=== PATIENT | female | born 1980 | race Caucasian/White ===

== ENCOUNTER 2016-12-11 09:30 | Emergency (ER) | payer OTHER ==
[2016-12-11 09:36] VITALS: BP 131/75
--- NOTE | 2016-12-11 10:24 | RAD ---
INDICATION: Painful swollen RIGHT thumb at the IP joint. No preceding injury. COMPARISON: No relevant prior exams available on the [facility] [place] PACS for comparison. TECHNIQUE: AP, lateral, and oblique views RIGHT hand. REPORT: Negative for fracture or malalignment. Minimal osteophytosis at the first carpometacarpal, metacarpophalangeal, and interphalangeal joints. Negative for osseous erosions or periarticular osteopenia. Mild soft tissue swelling of the thumb. No conspicuous foreign body evident. IMPRESSION: Minimal osteoarthritis.
--- NOTE | 2016-12-11 11:05 | UC ---
Zain Choi Rebecca, scribed for Tru Harman MD on 12/11/16 at 0942 . Upper Extremity HPI - HPI Summary HPI Summary: Pt is a 36 y/o F who presents to [facility] c/o R thumb pain and swelling. Sx began yesterday and have been constant since onset. Pain has improved since onset, previously severe and currently moderate, ranked 5/10 and characterized as an ache, mostly centralized to the joint. Sx aggravated by bending, alleviated by immobilization. Additionally c/o slight numbness in the thumb. Denies fever, chills, red-streaking and erythema. No pain in any other joints. No recent trauma, falls or over use. Dominant right hand. Reports she suspects bilateral tendonitis in the hands. No PMHx gout or RA. - History of Current Complaint Chief Complaint: UCUpperExtremity Stated Complaint: SWOLLEN FINGER Hx Obtained From: Patient Hx Last Menstrual Period: breast feeding Onset/Duration: Lasting Days - Started yesterday, Still Present Severity Initially: Severe Severity Currently: Moderate Pain Intensity: 5 Pain Scale Used: 0-10 Numeric Location Of Pain: Is Discrete @ - R thumb, particularly in the joint Character: Aching Aggravating Factor(s): Movement - Bending Alleviating Factor(s): Other: - Immobilization Associated Signs And Symptoms: Positive: Swelling, Numbness/Tingling - Slight R thumb numbness. Negative: Redness, Fever - Allergies/Home Medications Allergies/Adverse Reactions: Allergies Allergy/AdvReac Type Severity Reaction Status Date / Time No Known Allergies Allergy Verified 12/11/16 09:36 PMH/Surg Hx/FS Hx/Imm Hx - Additional Past Medical History Additional PMH: Hx PCOS Previously Healthy: No Endocrine History: Thyroid Disease - Surgical History Surgical History: Yes Surgery Procedure, Year, and Place: DERMOID CYST REMOVED 2008 - Family History Known Family History: Positive: Hypertension, Other - HLD - Social History Alcohol Use: Rare Substance Use Type: None Smoking Status (MU): Never Smoked Tobacco Have You Smoked in the Last Year: No - Immunization History Most Recent Influenza Vaccination: 2014 Most Recent Tetanus Shot: 03/18/15 Most Recent Pneumonia Vaccination: never Review of Systems Constitutional: Negative Skin: Negative Eyes: Negative ENT: Negative Respiratory: Negative Cardiovascular: Negative Gastrointestinal: Negative Genitourinary: Negative Motor: Negative Neurovascular: Negative Musculoskeletal: Arthralgia - R thumb pain with swelling Neurological: Negative Psychological: Negative All Other Systems Reviewed And Are Negative: Yes - Comments Additional Review of Systems Comments: NEGATIVE: Fever, chills, red-streaking, erythema, pain in any other joints. Physical Exam Triage Information Reviewed: Yes Vital Signs: Initial Vital Signs Temp 98.1 F 12/11/16 09:33 Pulse 89 12/11/16 09:33 Resp 16 12/11/16 09:33 BP 131/75 12/11/16 09:33 Pulse Ox 100 12/11/16 09:33 Vital Signs Reviewed: Yes - Additional Comments The patient is well-nourished in no acute distress and in no acute pain. The skin is warm and dry and skin color reflects adequate perfusion. No erythema or red streaking. Neck is supple with full range of motion and non-tender. There are no carotid bruits. There is no neck vein distension. Respiratory: Chest is non-tender. Lungs are clear to auscultation and breath sounds are symmetrical and equal. Cardiovascular: Hear is regular rate and rhythm. There is no murmur or rub auscultated. There is no peripheral edema and pulses are symmetrical and equal. Musculoskeletal: There is no back pain noted. Extremities have full range of motion. There is good capillary refill. Exam of the RUE reveals no swelling or tenderness in the elbow and FROM through elbow and shoulder. No lymphangitis in R arm, good pulses and good capillary refill refill. Radian, median and ulnar nerves are intact. No ligament laxity over the 1st MCP and IP joints. There is marked swelling over the IP joint of thumb and it is not red, not hot. No red streaks noted. No ecchymosis. Good capillary refill. No obvious evidence of infection or inflammatory process. No other joints in the RUE are swollen or tender. Neurological: Patient is alert and oriented to person, place and time. The patient has symmetrical motor strength in all four extremities. Psychiatric: The patient has an appropriate affect and does not exhibit any anxiety or depression. Diagnostics - Radiology Hand XR Radiology Interpretation Completed By: Radiologist - Minimal osteoarthritis. Re-Evaluation - Re-Evaluation First Eval Re-Evaluation Time: 10:27 Comment: Discussed XR results with the pt. Upper Extremity Course/Dx - Course Course Of Treatment: Pt is a 36 y/o F who presents to [facility] c/o R thumb pain and swelling since yesterday. Pain has improved since onset, previously severe and currently moderate, ranked 5/10 and characterized as an ache, mostly centralized to the joint. Sx aggravated by bending, alleviated by immobilization. Additionally c/o slight numbness in the thumb. Denies fever, chills, red-streaking and erythema. No pain in any other joints. No recent trauma, falls or over use. Dominant right hand. Reports she suspects bilateral tendonitis in the hands. No PMHx gout or RA. Hand XR reveals minimal osteoarthritis. She understands and agrees. Patient medications reviewed this visit. - Differential Dx/Diagnosis Differential Diagnosis/HQI/PQRI: Arthritis, Fracture (Closed), Other - Gout, cellulitis, tendonitis Provider Diagnoses: Thumb pain. Osteoarthritis. Discharge - Discharge Plan Condition: Stable Disposition: HOME Patient Education Materials: Osteoarthritis (ED) Referrals: Christopher Foster MD [Primary Care Provider] - (Follow upw tih Dr. Foster for your blood results. ) Additional Instructions: Wear your splint. Apply ice and take anti-inflammatories as needed. The documentation as recorded by the Zain grady Rebecca accurately reflects the service I personally performed and the decisions made by me, Tru Harman MD.
[2016-12-11 14:19] LABS: Hematocrit 42 % (35-47); Mean Corpuscular HGB Conc 34 g/dl (31-36); Mean Corpuscular Hemoglobin 31 pg (27-31); Mean Corpuscular Volume 91 fL (80-97); Mean Platelet Volume 9 um3 (7.4-10.4); Red Blood Count 4.59 10^6/ul (4.0-5.4); Red Cell Distribution Width 14 % (10.5-15); White Blood Count 6.7 10^3/ul (3.5-10.8)
[2016-12-11 14:40] LABS: Albumin 4.1 g/dL (3.2-5.2); BUN/Creatinine Ratio 16.2 (8-20); C Reactive Protein 3.11 mg/L (< 5.00); Calcium 9.3 mg/dL (8.6-10.3); EGFR African American 114.9 (>60); EGFR Non-African American 89.3 (>60); Globulin 2.8 g/dL (2-4); Potassium 4.4 mmol/L (3.5-5.0); Total Bilirubin 0.4 mg/dL (0.2-1.0); Total Protein 6.9 g/dL (6.4-8.9); Uric Acid 5.3 mg/dL (2.3-6.6)
== END 2016-12-11 10:33 | disposition home or self-care (01) ==
LOC: UCEAST 09:30
DX: M18.9 Osteoarthritis of first carpometacarpal joint, unspecified (principal)
CPT/HCPCS: 36415; 80053; 84550; 85025; 85652; 86140; 99212; G0463

== ENCOUNTER 2018-07-02 14:07 | Emergency (ER) | payer BC ==
--- OUTSIDE RECORDS SUMMARY | 2018-07-02 14:15 | XMS REPORT | Continuity of Care Document ---
:1980 External Reference #:[id number] Author Name Konrad Vega, OD Address [address] [place] [address] Care Team Providers Name Role Phone Christopher Foster MD Care Team Information Director Funds Development Unavailable Christopher Foster MD Primary Care Physician Unavailable Payers Date Identification Numbers Payment Provider Subscriber Policy Number: [id number] AMY/BS CNY Pos Elvi Dexter PayID: [id number] [address] [address] [place] [id number] Advance Directives Description No Information Available Problems Description No Information Family History Date Family Member(s) Observation Comments General Glasses General Cancer Father Glasses Mother Glasses Social History Type Date Description Comments Sex Unknown ETOH Use Occasionally consumes alcohol Tobacco Use Start: Unknown Patient has never smoked Smoking Status Reviewed: 06/30/18 Patient has never smoked Allergies, Adverse Reactions, Alerts Description No Information Medications Medication Date Status Form Strength Qnty SIG Indications Ordering Provider Plaquenil Active Tablets 200mg 30tabs 1 by M06.4 Ady, 019 mouth MD Peter every day for 1 week then 2 by mouth daily ongoing Levothyroxine 0 Active Tablets 112mcg Unknown Sodium 000 Prednisone Hx Tablets 10mg 30tabs take 4 Ady, 018 - tabs by MD Peter mouth 019 daily for 2 days then 3 tabs daily for 2 days then 2 tabs for 2 days then 1 tab for 2 days then d/c Immunizations Description No Information Available Vital Signs Description No Information Available Results Test Date Facility Test Result H/L Range Note Laboratory test 01/18/2018 N2N/CCD Import Anaplasma Negative finding phagocytophilum Aso (Antistreptolysin O) Titer Negative Iu/ml 1 B. miyamotoi PCR, B Negative 2 Babesia divergens/Mo-1 Negative 3 Babesia ducani Negative Babesia microti PCR Negative C Reactive Protein 2.10 mg/L 4 Celiac Interpretation See Comment 5 Creatine Kinase(CK) 135 U/L 10-223 6 Cyclic Citrullinated Pep Igg <15.6 U 7 Ehrlichia chaffeensis Negative Ehrlichia ewingii/canis Negative Ehrlichia muris-like Negative 8 Hla B27 Negative 9 Hla B27 Interp See Comment 10 Immunoglobulin A 177 mg/dL 61-356 Rheumatoid Factor < 10 Iu/ml 11 Tissue Transglutaminase IgA Ab <1.2 U/mL 12 Uric Acid 4.6 mg/dL 2.3-6.6 13 Anca AB Ser If 01/18/2018 N2N/CCD Import C-Anca Negative P-Anca Negative 14 Lyme Western Blot 01/18/2018 N2N/CCD Import Lyme Disease IgG Ab WB Negative Lyme Disease IgG Bands Present p41,p28 kDa Lyme Disease IgM Ab WB Negative Lyme Disease IgM Bands Present No bands detecte <See Note> kDa 15 Lyme Disease Interpretation See Comment 16 Vitamin B12 And 01/18/2018 N2N/CCD Import Folic Acid (Folate) > 20.00 ng/ mL 17 Folate Serum Vitamin B12 555 pg/mL 180-914 18 1 Normal values may vary with age, season and geographic area. Titers above upper limits may be indicative of infection, however only a two dilution rise in titer is required to be considered significant. ASO titer will usually rise above upper limits within one week of exposure, increase to peak levels at 3-5 weeks and return to baseline level at 6-12 twelve months. 2 ADDITIONAL INFORMATION This test was developed and its performance characteristics determined by [facility] in a manner consistent with CLIA requirements. This test has not been cleared or approved by the U.S. Food and Drug Administration. Test Performed by: [facility] - [address] [address] 3 ADDITIONAL INFORMATION This test was developed and its performance characteristics determined by [facility] in a manner consistent with CLIA requirements. This test has not been cleared or approved by the U.S. Food and Drug Administration. 4 Please check labs and xrays today 5 Negative serology. Celiac disease unlikely. However, approximately 10% of patients with celiac disease are seronegative. Also, patients who are already adhering to a gluten-free diet may be seronegative. If celiac disease is highly clinically suspected, consider HLA-DQ typing. Test Performed by: [facility] [place] [address] 6 Please check labs and xrays today 7 REFERENCE VALUE <20.0 (Negative) Test Performed by: [facility] [place] [address] 8 ADDITIONAL INFORMATION This test was developed and its performance characteristics determined by [facility] in a manner consistent with CLIA requirements. This test has not been cleared or approved by the U.S. Food and Drug Administration. 9 REFERENCE VALUE Not Applicable 10 RESULT: HLA-B27 antigen was not detected. ADDITIONAL INFORMATION Method: Flow Cytometry Performing Laboratory CLIA# [id number] Test Performed by: [place] [address] 11 Please check labs and xrays today 12 REFERENCE VALUE <4.0 (Negative) Test Performed by: [address] [address] 13 Please check labs and xrays today 14 Negative for cANCA and pANCA patterns by immunofluorescence. ADDITIONAL INFORMATION This test was developed and its performance characteristics determined by [facility] in a manner consistent with CLIA requirements. This test has not been cleared or approved by the U.S. Food and Drug Administration. Test Performed by: [facility] - [facility] [address] [place] [address] 15 No bands detected 16 Specific serologic response to B. burgdorferi infection is not detected, but cannot rule out early infection during which low or undetectable antibody levels to B. burgdorferi may be present. If clinically indicated, a new serum specimen should be submitted in 7-14 days. ADDITIONAL INFORMATION Per CDC criteria, the Lyme IgG Immunoblot is interpreted as positive if IgG-class antibodies are detected to >=5 B. burgdorferi proteins, and the Lyme IgM Immunoblot is interpreted as positive if IgM-class antibodies are detected to >=2 B. burgdorferi proteins. Immunoblot patterns not meeting these criteria should not be interpreted as positive. Epitopes from certain B. burgdorferi proteins (e.g., p41) are conserved across other bacteria, which may lead to the detection of IgM- and/or IgG-class antibodies on the Lyme disease immunoblots in patients without Lyme disease. Immunoblot should only be ordered on specimens that are positive or equivocal by a FDA-licensed Lyme disease antibody screening test (e.g., EIA). Results of the Lyme IgM immunoblot should not be considered in patients with >=30 days of symptoms. Test Performed by: [facility] - 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
[2018-07-02 14:23] VITALS: BP 125/75
--- NOTE | 2018-07-02 14:24 | UC ---
FLU HPI - HPI Summary HPI Summary: 37 yo female presents with headache and rash. She tells me that on 06/30 she had an eye exam by her eye doctor and her eyes were dilated. Later that day she developed a headache that she describes as a "tight band" above her eyes. Headache is very mild when she is not moving her head or eyes. Headache is severe with moving her head or her eyes. She has taken excedrin and ibuprofen for her headache with no change. She complains that lights bother her. Has had migraines in the past, but has never felt like this. Last night she took a bath and noticed a red rash all over her body after getting out of the bath. It faded a lot, but is still faintly there. Does not itch. Today she felt feverish and took her temp which was 100.2F. She took some tylenol for this and came to . She denies dizziness, vision changes, sinus symptoms, sore throat, cough, fatigue, SOB, chest pain, abdominal pain, n/v, dysuria. She also mentions that she started an OBC 3 weeks ago for abnormal menstrual bleeding. - History of Current Complaint Chief Complaint: UCGeneralIllness Stated Complaint: RASH FLU LIKE SYMP Time Seen by Provider: 07/02/18 14:24 Hx Obtained From: Patient Hx Last Menstrual Period: breast feeding Onset/Duration: Sudden Onset Severity Currently: Severe Severity Initially: Severe Pain Intensity: 8 Pain Scale Used: 0-10 Numeric - Allergy/Home Medications Allergies/Adverse Reactions: Allergies Allergy/AdvReac Type Severity Reaction Status Date / Time No Known Allergies Allergy Verified 07/02/18 14:23 Home Medications: Home Medications Ethinyl Estradiol/Drospirenone [Nargis 28 Tablet] 1 each PO DAILY WITH MEAL [History Confirmed 07/02/18] Hydroxychloroquine TAB* [Plaquenil TAB*] 400 mg PO DAILY 07/02/18 [History Confirmed 07/02/18] PMH/Surg Hx/FS Hx/Imm Hx - Additional Past Medical History Additional PMH: ?Rheumatoid arthritis Endocrine History: Hypothyroidism - Surgical History Surgical History: Yes Surgery Procedure, Year, and Place: DERMOID CYST REMOVED 2008. 2X C SECTIONS. CARDIAC ABLATION - Family History Known Family History: Positive: Hypertension, Other - HLD - Social History Occupation: Employed Full-time Lives: With Family Alcohol Use: Weekly Substance Use Type: None Smoking Status (MU): Never Smoked Tobacco Have You Smoked in the Last Year: No - Immunization History Most Recent Influenza Vaccination: 2014 Most Recent Tetanus Shot: 03/18/15 Most Recent Pneumonia Vaccination: never Review of Systems All Other Systems Reviewed And Are Negative: Yes Constitutional: Positive: Fever Skin: Positive: Rash Eyes: Positive: Photophobia ENT: Positive: Negative Respiratory: Positive: Negative Cardiovascular: Positive: Negative Gastrointestinal: Positive: Negative Genitourinary: Positive: Negative Neurovascular: Positive: Negative Musculoskeletal: Positive: Negative Neurological: Positive: Headache Psychological: Positive: Negative Physical Exam - Summary Physical Exam Summary: GENERAL: NAD. WDWN. No pain distress. SKIN: Scattered flat 3-4mm diameters faint and mildly erythematous rash on torso , arms, and legs. No open wounds, tenderness, edema, streaking, or ecchymosis. HEENT: Head: AT/NC. Eyes: PERRLA. EOM intact. Conjunctiva clear without inflammation or discharge. Ears: Hearing grossly normal. TMs intact, no bulging, erythema, or edema. No hemotympanum Nose: Nasal mucosa pink and moist. NTTP maxillary and frontal sinus. Throat: Posterior oropharynx with mild erythema. No exudates or tonsillar enlargement. Uvula midline. NECK: Supple. Nontender. FROM CHEST: CTAB. No r/r/w. No accessory muscle use. Breathing comfortably and in no distress. CV: RRR. Without m/r/g. Pulses intact. Brisk cap refill. ABDOMEN: Soft. NTTP. Bowel sounds present MSK: FROM in B/L UEs and LEs with symmetric strength. NEURO: A&Ox3. 3 word recall, remote, recent memory, ability to follow 2-step directions, and attention intact. CN: II: Peripheral lynch intact. Vision normal. III, IV, : EOMI. No nystagmus. PERRLA. V: Sensations intact and symmetric. Opens mouth and clenches teeth. VII: No facial asymmetry. Forehead wrinkles. Grins, shuts eyes, frowns, puffs cheeks. VIII: Hearing intact to finger rub. IX, X: Swallows and coughs. Uvula midline. XI: Shrugs shoulders. Turns head against resistance. XII: No tongue deviation [id number] are intact. Gait with normal base. Romberg: maintains balance, no pronator drift. Normal speech. No facial drooping. Negative brudzinski and kernig sign. PSYCH: Age appropriate behavior. Triage Information Reviewed: Yes Vital Signs: Initial Vital Signs Temp 99.1 F 07/02/18 14:19 Pulse 64 07/02/18 14:19 Resp 18 07/02/18 14:19 BP 125/75 07/02/18 14:19 Pulse Ox 100 07/02/18 14:19 Laboratory Tests 07/02/18 07/02/18 07/02/18 14:38 15:02 15:20 POC Glucose (mg/dL) 131 H POC Urine Color POC Urine Clarity POC Urine pH POC Ur Specif [place] POC Urine Protein POC Ur Glucose (UA) POC Urine Ketones POC Urine Blood POC Urine Nitrite POC Urine Bilirubin POC Urine Urobilinogen POC U Leukocyte [place] Influenza A (Rapid) Negative Influenza B (Rapid) Negative Group A Strep Rapid Negative 07/02/18 15:21 POC Glucose (mg/dL) POC Urine Color Yellow POC Urine Clarity Clear POC Urine pH 6.0 POC Ur Specif [place] <= 1.005 L POC Urine Protein Negative POC Ur Glucose (UA) Negative POC Urine Ketones Negative POC Urine Blood 1+ A POC Urine Nitrite Negative POC Urine Bilirubin Negative POC Urine Urobilinogen 0.2 POC U Leukocyte [place] Negative Influenza A (Rapid) Influenza B (Rapid) Group A Strep Rapid Vital Signs Reviewed: Yes Flu Course/Dx - Course Course Of Treatment: CT: IMPRESSION: NO ACUTE INTRACRANIAL PATHOLOGY. POC glucose 131. POC strep and flu negative. UA negative. I discussed with the pt that I am unsure the cause of her symptoms. They could be related to a simple viral illness or migraine, but she is concerned there might be something more wrong and wants to be sure she is not "stroking out". I discussed obtaining labwork from her today to further evaluate her symptoms, but she prefers to have a further workup in the ED and will go there now. - Differential Dx/Diagnosis Provider Diagnosis: Headache, Rash, Photophobia Discharge - Sign-Out/Discharge Documenting (check all that apply): Patient Departure All imaging exams completed and their final reports reviewed: Yes - Discharge Plan Condition: Stable Disposition: HOME Referrals: Christopher Foster MD [Primary Care Provider] - Additional Instructions: Please go to the ER for further evaluation of your worsening headache and rash. - Billing Disposition and Condition Condition: STABLE Disposition: Home
[2018-07-02 14:50] LABS: Influenza A Molecular NEGATIVE (Negative); Influenza B Molecular NEGATIVE (Negative)
== END 2018-07-02 15:58 | disposition home or self-care (01) ==
LOC: UCEAST 14:07
DX: R51 Headache (principal); R21 Rash and other nonspecific skin eruption; H53.149 Visual discomfort, unspecified
CPT/HCPCS: 70450; 81003; 87651; 99212; G0463

== ENCOUNTER 2018-07-02 16:24 | Emergency (ER) | payer BC ==
[2018-07-02] MEDS ORDERED: Metoclopramide TAB* 10 MG PO ONE (18:43)
[2018-07-02] MEDS ORDERED: diPHENhydraMINE PO* 25 MG PO ONE (18:43)
[2018-07-02] MEDS ORDERED: Ketorolac TAB * 10 MG TAB PO ONE (18:43)
[2018-07-02 19:21] LABS: ABS Basophils 0.1 10^3/ul (0-0.2); ABS Eosinophils 0.1 10^3/ul (0-0.6); ABS Lymphocytes 2.8 10^3/ul (1.0-4.8); ABS Monocytes 0.4 10^3/ul (0-0.8); ABS Neutrophils 4.1 10^3/ul (1.5-7.7); ABS Nucleated RBC 0 10^3/ul; Eosinophil % 1.4 %; Hematocrit 40 % (35-47); Hemoglobin 13.7 g/dl (12.0-16.0); Lymphocyte % 37.5 %; Mean Corpuscular HGB Conc 35 g/dl (31-36); Mean Corpuscular Hemoglobin 30 pg (27-31); Mean Corpuscular Volume 88 fL (80-97); Mean Platelet Volume 8.1 fL (7.4-10.4); Nucleated Red Blood Cells % 0; Platelet Count 207 10^3/ul (150-450); Red Blood Count 4.52 10^6/ul (4.00-5.40); Red Cell Distribution Width 14 % (10.5-15); White Blood Count 7.6 10^3/ul (3.5-10.8)
--- NOTE | 2018-07-02 19:30 | ED ---
Headache - HPI Summary HPI Summary: Patient complains of headache, pain with upward eye movement 3 days. Also complains of fever up to 100.2, generalized body rash starting today. Sent to the ED by [facility] for further evaluation. CT brain, flu, strep, UA negative at [facility]. Patient states migraine headaches usually controlled with Excedrin, but not being controlled with current headache. Denies ear pain, sore throat, vision change, lightheadedness, dizziness, cough, sinus congestion, neck stiffness, N/V /D, abdominal pain, CP, SOB, change in urine, change in BM. Medical history is hypothyroid. - History Of Current Complaint Chief Complaint: EDHeadache Stated Complaint: FEVER/HEADACHE/RASH Time Seen by Provider: 07/02/18 18:03 Hx Obtained From: Patient Hx Last Menstrual Period: breast feeding Onset/Duration: Gradual Onset, Started days ago Initially Headache Was: Moderate Currently Pain Is: Moderate Timing: Hours Character: Throbbing, Pressure Location of Headache: Diffuse Aggravating Factor: Position Change Allevating Factors: Nothing Associated Signs And Symptoms: Negative - Allergies/Home Medications Allergies/Adverse Reactions: Allergies Allergy/AdvReac Type Severity Reaction Status Date / Time No Known Allergies Allergy Verified 07/02/18 17:11 PMH/Surg Hx/FS Hx/Imm Hx Endocrine/Hematology History: Reports: Hx Thyroid Disease Denies: Hx Diabetes Cardiovascular History: Denies: Hx Hypertension, Hx Pacemaker/ICD Respiratory History: Denies: Hx Asthma, Hx Chronic Obstructive Pulmonary Disease (COPD) GI History: Denies: Hx Ulcer History: Denies: Hx Renal Disease Sensory History: Denies: Hx Hearing Aid Opthamlomology History: Denies: Hx Eye Prosthesis EENT History: Denies: Hx Deafness Neurological History: Denies: Hx Dementia Psychiatric History: Denies: Hx Autism, Hx Panic Disorder - Surgical History Surgery Procedure, Year, and Place: DERMOID CYST REMOVED 2009. 2X C SECTIONS. CARDIAC ABLATION Infectious Disease History: No Infectious Disease History: Denies: Hx Hepatitis, Hx Human Immunodeficiency Virus (HIV), Traveled Outside the [place] in Last 30 Days - Family History Known Family History: Positive: Hypertension, Other - HLD - Social History Alcohol Use: Weekly Substance Use Type: Reports: None Smoking Status (MU): Never Smoked Tobacco Have You Smoked in the Last Year: No Review of Systems Positive: Fever Eyes: Negative ENT: Negative Cardiovascular: Negative Respiratory: Negative Gastrointestinal: Negative Genitourinary: Negative Musculoskeletal: Negative Positive: Rash Positive: Headache Psychological: Normal All Other Systems Reviewed And Are Negative: Yes Physical Exam - Summary Physical Exam Summary: Neuro exam normal. Physical exam otherwise unremarkable. No rash noted. Triage Information Reviewed: Yes Vital Signs On Initial Exam: Initial Vitals Temp Pulse Resp BP Pulse Ox 99.8 F 64 16 124/80 98 07/02/18 17:03 07/02/18 17:03 07/02/18 17:03 07/02/18 17:03 07/02/18 17:03 Vital Signs Reviewed: Yes Appearance: Positive: Well-Appearing Skin: Positive: Warm Head/Face: Positive: Normal Head/Face Inspection Eyes: Positive: Normal ENT: Positive: Normal ENT inspection Neck: Positive: Supple Respiratory/Lung Sounds: Positive: Clear to Auscultation Cardiovascular: Positive: Normal Abdomen Description: Positive: Nontender Musculoskeletal: Positive: Normal Neurological: Positive: Normal Psychiatric: Positive: Normal AVPU Assessment: Alert - Lorri Coma Scale Best Eye Response: 4 - Spontaneous Best Motor Response: 6 - Obeys Commands Best Verbal Response: 5 - Oriented Coma Scale Total: 15 Diagnostics - Vital Signs Vital Signs Temp Pulse Resp BP Pulse Ox 07/02/18 19:04 65 120/86 07/02/18 19:03 53 113/72 07/02/18 17:03 99.8 F 64 16 124/80 98 - Laboratory Lab Results: Lab Results 07/02/18 Range/Units 19:13 WBC 7.6 (3.5-10.8) 10^3/ul RBC 4.52 (4.00-5.40) 10^6/ul Hgb 13.7 (12.0-16.0) g/dl Hct 40 (35-47) % MCV 88 (80-97) fL MCH 30 (27-31) pg MCHC 35 (31-36) g/dl RDW 14 (10.5-15) % Plt Count 207 (150-450) 10^3/ul MPV 8.1 (7.4-10.4) fL Neut % (Auto) 54.4 % Lymph % (Auto) 37.5 % [place] % (Auto) 5.5 % Eos % (Auto) 1.4 % Baso % (Auto) 1.2 % Absolute Neuts (auto) 4.1 (1.5-7.7) 10^3/ul Absolute Lymphs (auto) 2.8 (1.0-4.8) 10^3/ul Absolute Monos (auto) 0.4 (0-0.8) 10^3/ul Absolute Eos (auto) 0.1 (0-0.6) 10^3/ul Absolute Basos (auto) 0.1 (0-0.2) 10^3/ul Absolute Nucleated RBC 0 10^3/ul Nucleated RBC % 0 Result Diagrams: 07/02/18 19:13 07/02/18 19:13 Lab Statement: Any lab studies that have been ordered have been reviewed, and results considered in the medical decision making process. Headache Course/Dx - Course Course Of Treatment: Patient complains of headache, pain with upward eye movement 3 days. Also complains of fever up to 100.2, generalized body rash starting today. Sent to the ED by [facility] for further evaluation. CT brain, flu, strep, UA negative at [facility]. Patient states migraine headaches usually controlled with Excedrin, but not being controlled with current headache. Denies ear pain , sore throat, vision change, lightheadedness, dizziness, cough, sinus congestion, neck stiffness, N/V/D, abdominal pain, CP, SOB, change in urine, change in BM. Medical history is hypothyroid. Physical exam:Neuro exam normal. Physical exam otherwise unremarkable. No rash noted. Vital signs within normal limits. Labs unremarkable. Orthostatics unremarkable. Likely viral syndrome. - Diagnoses Provider Diagnoses: Viral syndrome Discharge - Sign-Out/Discharge Documenting (check all that apply): Patient Departure Patient Received Moderate/Deep Sedation with Procedure: No - Discharge Plan Condition: Stable Disposition: HOME Patient Education Materials: Viral Syndrome (ED) Referrals: Christopher Foster MD [Primary Care Provider] - Additional Instructions: Drink plenty of fluids to maintain hydration. You may alternate ibuprofen 600 mg with ibuprofen Tylenol 650 mg every 3 hours for control of headache. Take Benadryl 50 mg every 4 hours if needed for additional headache control. Take flexiril as directed. Follow-up with primary care. Return to the ED for any new or worsening symptoms - Billing Disposition and Condition Condition: STABLE Disposition: Home
[2018-07-02 19:39] LABS: Albumin 4.3 g/dL (3.2-5.2); Anion Gap 10 mmol/L (2-11); CO2 Carbon Dioxide 25 mmol/L (22-32); Calcium 9.3 mg/dL (8.6-10.3); Chloride 104 mmol/L (101-111); Potassium 4.4 mmol/L (3.5-5.0); Sodium 139 mmol/L (135-145)
[2018-07-02 19:45] LABS: ALT 16 U/L (7-52); AST 17 U/L (13-39); Albumin/Globulin Ratio 1.3 (1-3); Alkaline Phosphatase 54 U/L (34-104); Blood Urea Nitrogen 12 mg/dL (6-24); C Reactive Protein 19.17 mg/L (<8.01); Globulin 3.2 g/dL (2-4); Glucose 83 mg/dL (70-100); Total Protein 7.5 g/dL (6.4-8.9)
[2018-07-02 19:46] LABS: HCG Pregnancy < 0.60 mIU/mL
[2018-07-02 19:59] LABS: TSH (Thyroid Stimulating Horm) 1.63 mcIU/mL (0.34-5.60)
[2018-07-02 20:02] LABS: BUN/Creatinine Ratio 11.1 (8-20); EGFR African American 69.5 (>60); EGFR Non-African American 57.4 (>60)
[2018-07-02 20:43] VITALS: BP 104/68
== END 2018-07-02 20:42 | disposition home or self-care (01) ==
LOC: ED 16:24
DX: B34.9 Viral infection, unspecified (principal); R50.9 Fever, unspecified; R51 Headache; R21 Rash and other nonspecific skin eruption
CPT/HCPCS: 36415; 80053; 84443; 84702; 85025; 86140; 99283; A9270-GY